=== PATIENT | female | born 1990 | race Caucasian/White ===

== ENCOUNTER 2017-01-03 13:05 | Emergency (ER) | payer BC, OTHER ==
[~2017-01-03] VITALS: Ht 162.6 cm; Wt 77.7 kg
[2017-01-03] MEDS ORDERED: SODIUM CHLORIDE 0.9% 1,000ML IVBOLUS ONE (14:00)
[2017-01-03] MEDS ORDERED: ACETAMINOPHEN 325 MG TABLET PO ONE (14:00)
[2017-01-03 14:36] LABS: ASPARTATE AMINO TRANSFERASE 11 U/L (15-37); BLOOD UREA NITROGEN 11 mg/dL (7-18)
[2017-01-03] MEDS ORDERED: ACETAMINOPHEN 325 MG TABLET ONE (14:42)
[2017-01-03 14:50] LABS: HEMOGLOBIN 14.1 g/dL (11.7-16.4)
[2017-01-03 15:34] VITALS: BP 129/77
== END 2017-01-03 16:27 | disposition home or self-care (01) ==
LOC: ED 14:28
DX: O26.891 Other specified pregnancy related conditions, first trimester (principal); O02.0 Blighted ovum and nonhydatidiform mole; Z3A.08 8 weeks gestation of pregnancy; J45.909 Unspecified asthma, uncomplicated
CPT/HCPCS: 36415; 76830; 80053; 84702; 85025; 86901; 96360; 99285; J7030

== ENCOUNTER 2017-01-31 18:35 | Emergency (ER) | payer OTHER ==
[~2017-01-31] VITALS: Ht 160 cm; Wt 79.5 kg
[2017-01-31] MEDS ORDERED: SODIUM CHLORIDE FLUSH 10ML SYR IVF ONE (19:00)
[2017-01-31] MEDS ORDERED: SODIUM CHLORIDE 0.9% 1,000ML IVBOLUS ONE (19:00)
[2017-01-31 19:29] LABS: BLOOD UREA NITROGEN 10 mg/dL (7-18)
[2017-01-31 19:35] LABS: ASPARTATE AMINO TRANSFERASE 9 U/L (15-37)
[2017-01-31] MEDS ORDERED: ETON1VAG VG (19:49)
[2017-01-31] MEDS ORDERED: ACYC-114 PO (19:49)
[2017-01-31] MEDS ORDERED: ALBU18HF PO (19:49)
[2017-01-31] MEDS ORDERED: ONDANSETRON 2MG/ML, 2ML IVPush ONE (20:30)
[2017-01-31] MEDS ORDERED: ONDANSETRON 2MG/ML, 2ML ONE (20:45)
[2017-02-01 00:08] VITALS: BP 128/78
== END 2017-02-01 00:11 | disposition home or self-care (01) ==
LOC: ED 23:59
DX: R19.7 Diarrhea, unspecified (principal); R10.11 Right upper quadrant pain; Z88.6 Allergy status to analgesic agent; Z91.040 Latex allergy status; Z88.8 Allergy status to other drugs, medicaments and biological substances
CPT/HCPCS: 36415; 76700; 80053; 81003; 83690; 84703; 85025; 96361; 96374; 99285; J2405; J7030; 96360